=== PATIENT | female | born 1950 | race Two or more races ===

== ENCOUNTER 2024-11-14 19:25 | Emergency (ER) | payer OTHER ==
[~2024-11-14] VITALS: Ht 152.4 cm; Wt 72.6 kg
[2024-11-14] MEDS ORDERED: ZESTORETIC 20-1 EACH PO (19:38)
[2024-11-14] MEDS ORDERED: ZOCOR40 MG PO (19:38)
[2024-11-14] MEDS ORDERED: SYNTHROID112 MCG PO (19:38)
[2024-11-14] MEDS ORDERED: NEURONTIN300 MG PO (19:39)
[2024-11-14] MEDS ORDERED: NITROGLYCERIN 0.4 MG TAB.SUBL SL ONE (20:15)
[2024-11-14 20:35] LABS: BASO % 0.8 % (0.1-1.2); EOS # 0.07 (0.04-0.54); EOS % 0.7 % (0.7-7.0); LYMPH # 1.82 (1.18-3.74); LYMPH % 17.8 % (19.3-53.1); MEAN PLATELET VOLUME 11.40 fl (9.4-12.4); MONO # 1.00 (0.24-0.82); MONO % 9.8 % (4.7-12.5); NEUT # 7.18 (1.56-6.13); NEUT % 70.3 % (34.0-71.1); RED CELL DISTRIBUTION WIDTH 13.1 % (11.6-14.4)
[2024-11-14 20:46] LABS: URINE APPEARANCE Clear; URINE BILIRRUBIN Negative (NEGATIVE); URINE BLOOD Negative; URINE COLOR Yellow; URINE GLUCOSE Negative (NEGATIVE); URINE KETONE Negative (NEGATIVE); URINE LEUKOCYTE Negative; URINE NITRATE Negative; URINE PROTEIN Negative (NEGATIVE); URINE UROBILINOGEN 0.2 E.U./dl
[2024-11-14 20:50] LABS: URINE BACTERIA 182.4 uL (0.0-1933); URINE CAST 0.00 uL (0.0-1.40); URINE EPITHELIAL CELLS 13.5 uL (0.0-38.8); URINE RBC 2.1 uL (0.0-20.8); URINE WBC 5.3 uL (0.0-23.2)
[2024-11-14 20:57] LABS: COVID-19 AG NEGATIVE (NEGATIVE); INR 1.0
[2024-11-14 21:28] LABS: ALT/SGPT 21 U/L (12-78); AST/SGOT 26 U/L (15-37); BILIRUBIN TOTAL 0.31 mg/dL (0.3-1.2); BUN CREA RATIO 23 (7.0-25.0); CREATININE SERUM 0.79 mg/dL (0.55-1.02); GFR 71.54; GLOBULINA 3.9 G/DL (2.4-3.5); GLUCOSE FASTING 106 mg/dL (65-100); OSMOLALITY SERUM 284 MOSM/KG (275-295)
[2024-11-14 21:46] LABS: TSH < 0.005 uIU/mL (0.358-3.74)
== END 2024-11-14 22:25 | disposition home or self-care (01) ==
LOC: ER 19:25
PROVIDERS: General Practice
DX: E03.8 Other specified hypothyroidism (principal); R07.89 Other chest pain; Z20.822 Contact with and (suspected) exposure to COVID-19; I10 Essential (primary) hypertension; Z88.2 Allergy status to sulfonamides